=== PATIENT | female | born 1985 | race Caucasian/White ===

== ENCOUNTER 2023-03-25 01:57 | Day surgery (SDC) | payer BC, OTHER, SELFPAY ==
--- NOTE | 2023-03-17 10:00 | SUR.PREOP ---
Report to the Outpatient Waiting Room, entrance under the green pavilion located off [facility], at time 0800 on date 03/25/23. Planned Procedure Time: 1000. Time changes happen often and if your time is changed the preop area will call you the afternoon before. - You and your visitor will be asked to self-screen and do not enter if you have any COVID symptoms. - A mask is optional within the hospital at this time. Patients may have clear liquids (water, carbonated beverages, clear teas, apple juice) until 3 hours prior to surgery with a maximum of 20 ounces. - No food from midnight until time of surgery - Infants may have breast milk until 4 hours before surgery, infant formula 6 hours prior to surgery. - Children will be allowed to drink immediately following surgery. If applicable, please bring a bottle or sippy cup to assist with drinking. Juice, water, soda, and popsicles are readily available. For infants on formula, please bring formula the day of surgery. Pacifiers are allowed. Take the following medications with a SIP of water the morning of surgery: N/A DO NOT STOP ANY OF YOUR OTHER PRESCRIPTION MEDICATIONS PRIOR TO SURGERY ?EXCEPT THE FOLLOWING Medications to discontinue per physician MULTIVITAMIN Date to take last dose 03/22/23 Please no make-up, nail indonesian, hairspray, perfume, deodorant, or body powder the day of surgery. No jewelry (including any body piercings) or valuables the day of surgery, leave them at home. Please take a shower or bath the night before, or the morning of, surgery with an antibacterial soap. Wear comfortable, loose fitting clothing. Children are encouraged to wear pajamas. - Jewelry must be removed prior to entering the operating room. Rings and piercings that are not removed may be cut off. - The hospital will not accept responsibility for valuables. - Please leave all valuables, including medications, at home the day of surgery. If you are going home after surgery, a licensed screw driver operator must drive you home. - NO public transportation without another adult if you receive anesthesia. - We recommend that an adult stay with you for 24 hours following discharge. - We also recommend that you do not drive, make important decision, drink alcoholic beverages, or take any drugs that were not prescribed by your health care provider for at least 24 hours after your discharge time. For Pediatric surgeries, we recommend two adults accompany the child home. Follow any additional instructions given to you from your surgeon. If you or anyone in your household have experienced Covid symptoms in the past week, please notify your surgeon or the nurse liaison at the phone number below for possible testing. Telephone instructions given to YULISA SANTOS and asked if any additional questions and then verbalized understanding. Patient advised to call surgeon office or pre surgery nurse liaison [phone] if any additional questions.
[2023-03-17 10:12] VITALS: BMI 25.0
[2023-03-25 08:20] VITALS: BP 111/65; PULSE 72; RESP 14; TEMP 36.4; O2SAT 100; BMI 25.7
[2023-03-25] MEDS: ACETAMINOPHEN 500 MG TABLET 1000 MG PO (08:31)
[2023-03-25] MEDS: LACTATED RINGERS 1,000 ML 30 ML IV CONT (09:45)
--- NOTE | 2023-03-25 10:00 | P.PNAN_ITS ---
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 Patient Data Age: 37 Gender: F Height: 1.68 m Weight: 72.25 kg Last Vital Signs Temp 36.4 C 03/25/23 08:20 Pulse 72 03/25/23 08:20 Resp 14 03/25/23 08:20 BP 111/65 03/25/23 08:20 Pulse Ox 100 03/25/23 08:20 O2 Del Method Room Air 03/25/23 08:20 Allergies Allergy/AdvReac Type Severity Reaction Status Date / Time No Known Allergies Allergy Verified 03/25/23 08:29 Home Medications Medication Instructions Recorded Confirmed Type multivitamin 1 tablet PO DAILY 03/17/23 03/25/23 History Patient hx anesthesia problems: none Family hx anesthesia problems: none Results Review: All pre-operative results and documents have been reviewed as part of the pre-operative evaluation. FOR[facility]LY [facility] Social History Social History Smoking status: Never smoker Drinks per week: 1 Living arrangements: with family Spiritual care concerns: No Anes - Eval Final PreProcedure Day of Procedure 03/25/23 10:00 Patient weight: normal Heart: regular rate and rhythm Lungs: clear to auscultation Airway: Mallampati scale class II Neurological: alert and oriented Last oral intake: >/= 8 hours ASA classification: II Emergent: no Anesthetic plan: proceed Anesthesia type and monitoring: general GIVS and standard monitoring Results Review: All pre-operative results and documents have been reviewed as part of the pre- operative evaluation. Informed Consent: The patient's anesthetic plan and its attendant risks and benefits were discussed with the patient/family/POA. Questions were solicited and answers provided to the satisfaction of the patient/family/POA.
--- NOTE | 2023-03-25 10:00 | SUR.PREOP ---
1000- Notified patient procedure start time will be delayed. Patient and spouse verbalized understanding.
--- NOTE | 2023-03-25 10:12 | PM.IMHP ---
H&P: HPI History of Present Illness Date/Time: 03/25/23 10:12 Chief Complaint: CIN3 Narrative: Treva is a 37yo with CIN3 for LEEP. Had it scheduled last April, didn't have a ride. Most recent pap confirmed HSIL, ECC did show CIN3. She wants one more though her does not. Review of Systems Review of Systems: All systems reviewed & are unremarkable except as noted in HPI and below PMFSH Social History Social History Smoking status: Never smoker Drinks per week: 1 Living arrangements: with family Spiritual care concerns: No Meds Home Medications and Allergies Home Medications Medication Instructions Recorded Confirmed Type multivitamin 1 tablet PO DAILY 03/17/23 03/25/23 History Allergies Allergy/AdvReac Type Severity Reaction Status Date / Time No Known Allergies Allergy Verified 03/25/23 08:29 Vital Signs Vital Signs - 24 hr 03/25/23 08:20 Temperature 97.6 F Pulse Rate 72 Respiratory Rate 14 Blood Pressure 111/65 Pulse Oximetry 100 Oxygen Delivery Room Air Exam Const: General: no acute distress Resp: Effort & Inspection: normal respiratory effort Auscultation: clear to auscultation bilaterally Cardio: Rate: regular rate Rhythm: regular rhythm GI: GI Palp: Yes Soft to palpation Extrem: General: normal to inspection Assessment and Plan Assessment and plan (1) ANNABELLE III (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 we specifically discussed risks related to future pregnancies. also discussed risks of occult malignancy, not getting all of the dysplasia, recurrence, need for further procedures. discussed procedure, recovery, followup. Will proceed.
--- NOTE | 2023-03-25 10:15 | WPDHPUPDATE1 ---
History and Physical Update Update Date/Time: 03/25/23 10:15 History and Physical has been reviewed, including an updated exam of the patient. There are NO changes in the patient's condition. Risks, benefits, and alternatives have been discussed and questions answered. Patient agrees to proceed with procedure.
[2023-03-25] MEDS: BUPIVACAINE/EPINEPHRINE 0.5% 50 ML VIAL 10 ML INFILTRATE (10:31)
--- NOTE | 2023-03-25 10:42 | P.OP_ITS ---
Procedure Note - Detailed Date of Procedure 03/25/23 Pre-op Diagnosis CIN3 Post-op Diagnosis Same Procedure Performed Loop Electrosurgical Excision Procedure Surgeon Yue Feliz MD Truck Engine Technician none Anesthesia MAC Indications CIN3 Description of Procedure The patient was taken to the OR and placed in dorthal lithotomy in [facility]. She received MAC anesthesia. A coated speculum with attached suction was placed and 10cc of 0.25% marcaine with epinephrine was instilled in a paracervical block. Lugols solution was placed on the cervix to highlight the dysplastic cells, which were entirely on the posterior lip of the cervix. Using loop cautery set to 50 cut, the dysplastic area was excised and send to pathology. Ball cautery set to 50 coagulate was used for hemostasis, followed by Monsel's solution. The speculum was removed. The patient tolerated the procedure well. Estimated Blood Loss 10 Drains No Packing No Pathology Yes Complications No immediate complications Condition Stable Disposition Same day
[2023-03-25 10:44] VITALS: BP 126/55; PULSE 105; RESP 14; O2SAT 97
[2023-03-25 11:10] VITALS: BP 109/64; PULSE 86; RESP 16; O2SAT 100
[2023-03-25 11:35] VITALS: BP 115/61; PULSE 68; RESP 16
== END 2023-03-25 11:45 | disposition home or self-care (01) ==
PROVIDERS: Visit Provider Obstetrics & Gynecology
PROC: 0UBC7ZZ Excision of Cervix, Via Natural or Artificial Opening (ICD-10-PCS; CPT 57522; principal; 2023-03-25 10:00)
DX: D06.9 Carcinoma in situ of cervix, unspecified (principal)
CPT/HCPCS: 57522; 88307; A9270; J2001; J2250; J2405; J2704; J3010; J7120